=== PATIENT | male | born 1995 | race Asian ===

== ENCOUNTER 2021-03-16 21:53 | Emergency (ER) | payer OTHER ==
[~2021-03-16] VITALS: Ht 182.9 cm; Wt 68.0 kg
== END 2021-03-16 22:40 | disposition home or self-care (01) ==
LOC: ER 21:53
DX: U07.1 COVID-19 (principal)
CPT/HCPCS: 99282

== ENCOUNTER 2022-04-17 19:31 | Emergency (ER) | payer OTHER ==
[~2022-04-17] VITALS: Ht 182.9 cm; Wt 65.8 kg
[2022-04-17] MEDS ORDERED: CYCL10 PO (21:14)
== END 2022-04-17 21:31 | disposition home or self-care (01) ==
LOC: ER 19:31
DX: S29.012A Strain of muscle and tendon of back wall of thorax, initial encounter (principal); X50.0XXA Overexertion from strenuous movement or load, initial encounter
CPT/HCPCS: 99282; A9270

== ENCOUNTER → 2023-01-26 | Outpatient (CLI) | payer OTHER ==
[~2023-01-26] MED LIST: CYCL10 PO; VENL75ER PO
== END ==
LOC: LAB 11:57 → LAB SHORT 11:57
DX: J02.9 Acute pharyngitis, unspecified (principal)
CPT/HCPCS: 87081

== ENCOUNTER 2024-06-20 19:16 | Emergency (ER) | payer OTHER ==
[~2024-06-20] VITALS: Ht 182.9 cm; Wt 71.2 kg
[2024-06-20] MEDS ORDERED: Ketorolac Tromethamine 15mg Vial IV ONE (22:10)
[2024-06-20] MEDS ORDERED: NS 1,000 ML IV SCH (22:10)
[2024-06-20 22:30] LABS: BASOPHILS ABSOLUTE AUTO 0.08 K/mm3 (0.00-0.23); BASOPHILS PERCENT AUTO 1 % (0-2); EOSINOPHILS PERCENT AUTO 10 % (0-6); Hemoglobin 13.7 g/dL (13.5-17.5); IMMATURE GRAN ABSOLUTE AUTO 0.02 K/mm3 (0.00-0.10); IMMATURE GRAN PERCENT AUTO 0 % (0-1); LYMPHOCYTES PERCENT AUTO 47 % (21-46); MONOCYTES ABSOLUTE AUTO 0.58 K/mm3 (0.16-1.47); MONOCYTES PERCENT AUTO 7 % (4-13); Mean Corpuscular HGB 28.2 pg (26.0-34.0); Mean Corpuscular HGB Conc 34.3 g/dL (31.5-36.5); Mean Corpuscular Volume 82 fL (80-100); Mean Platelet Volume 9.2 fL (9.1-12.4); NEUTROPHILS PERCENT AUTO 34 % (41-73); Platelet Count 322 K/mm3 (150-400); RDW Coefficient Variation 12.6 % (11.7-14.2); RDW Standard Deviation 38.1 fL (35.1-46.3); Red Blood Cell Count 4.86 M/mm3 (4.30-5.90); White Blood Cell Count 7.88 K/mm3 (4.00-11.30)
[2024-06-20 22:55] LABS: Albumin, Blood 3.8 g/dL (3.4-5.0); Albumin/Globulin Ratio 1.2 (0.8-1.8); Bilirubin, Total 0.3 mg/dL (0.1-1.0); Bun/Creatinine Ratio 9.8 (12.0-20.0); Calcium, Blood 8.2 mg/dL (8.5-10.1); Creatinine, Blood 0.92 mg/dL (0.60-1.20); Globulin, Blood 3.1 g/dL (2.2-4.0); Potassium, Blood 3.9 mmol/L (3.5-5.5); Total Protein, Blood 6.9 g/dL (6.4-8.2)
[2024-06-20 23:00] VITALS: BP 113/85
== END 2024-06-20 23:14 | disposition home or self-care (01) ==
LOC: ER 19:16
PROVIDERS: Student in an Organized Health Care Education/Training Program
DX: M79.605 Pain in left leg (principal); K92.1 Melena; Z79.51 Long term (current) use of inhaled steroids
CPT/HCPCS: 80053; 82550; 85025; 93971; 96361; 96374; 99284-25; J1885; J7030

== ENCOUNTER 2025-01-11 19:24 | Emergency (ER) | payer OTHER ==
[~2025-01-11] VITALS: Ht 182.9 cm; Wt 70.3 kg
[2025-01-11 21:15] VITALS: BP 120/75
[2025-01-11] MEDS ORDERED: Lidocaine 4% 1 Patch TOP ONE (21:15)
[2025-01-11] MEDS ORDERED: Ketorolac Tromethamine 15mg Vial IM ONE (21:15)
[2025-01-11] MEDS ORDERED: ASPERFLEX1 EACH TOP (21:19)
[2025-01-11] MEDS ORDERED: Robaxin750 MG PO (21:19)
== END 2025-01-11 21:26 | disposition home or self-care (01) ==
LOC: ER 19:24
DX: S16.1XXA Strain of muscle, fascia and tendon at neck level, initial encounter (principal); X58.XXXA Exposure to other specified factors, initial encounter; Z79.899 Other long term (current) drug therapy
CPT/HCPCS: 93005; 93010; 96372; 99283-25; A9270; J1885

== ENCOUNTER 2025-01-12 11:45 | Emergency (ER) | payer OTHER ==
[~2025-01-12] VITALS: Ht 182.9 cm; Wt 70.3 kg
[~2025-01-12 11:45] MED LIST changes: +ASPERFLEX1 EACH TOP; +Robaxin750 MG PO
[2025-01-12 12:43] VITALS: BP 139/95
[2025-01-12 13:32] LABS: BASOPHILS ABSOLUTE AUTO 0.07 K/mm3 (0.00-0.23); BASOPHILS PERCENT AUTO 1 % (0-2); EOSINOPHILS ABSOLUTE AUTO 0.60 K/mm3 (0.00-0.68); EOSINOPHILS PERCENT AUTO 8 % (0-6); Hematocrit 44.1 % (37.0-53.0); Hemoglobin 15.0 g/dL (13.5-17.5); IMMATURE GRAN ABSOLUTE AUTO 0.03 K/mm3 (0.00-0.10); IMMATURE GRAN PERCENT AUTO 0 % (0-1); LYMPHOCYTES ABSOLUTE AUTO 2.11 K/mm3 (0.84-5.20); LYMPHOCYTES PERCENT AUTO 28 % (21-46); MONOCYTES ABSOLUTE AUTO 0.67 K/mm3 (0.16-1.47); MONOCYTES PERCENT AUTO 9 % (4-13); Mean Corpuscular HGB Conc 34.0 g/dL (31.5-36.5); Mean Corpuscular Volume 84 fL (80-100); NEUTROPHILS ABSOLUTE AUTO 3.94 K/mm3 (1.96-9.15); NEUTROPHILS PERCENT AUTO 53 % (41-73); NRBC ABSOLUTE 0.00 K/mm3 (0.00-0.02); NRBC Auto 0.0 /100 WBC (0.0-0.2); Platelet Count 326 K/mm3 (150-400); RDW Coefficient Variation 13.0 % (11.7-14.2); RDW Standard Deviation 39.7 fL (35.1-46.3)
[2025-01-12 14:02] LABS: Alanine Aminotransfer (ALT/SGP 26.0 U/L (12-78); Albumin, Blood 4.1 g/dL (3.4-5.0); Albumin/Globulin Ratio 1.1 (0.8-1.8); Anion Gap 7.0 mmol/L (3-11); Aspartate Aminotrans (AST/SGOT 25.0 U/L (12-37); Bilirubin, Total 0.6 mg/dL (0.1-1.0); Blood Urea Nitrogen 16.0 mg/dL (8-24); CO2, Blood 28.0 mmol/L (21-32); Calcium, Blood 8.8 mg/dL (8.5-10.1); Chloride, Blood 105.0 mmol/L (98-108); Creatinine, Blood 0.98 mg/dL (0.60-1.20); Globulin, Blood 3.6 g/dL (2.2-4.0); Glucose, Blood 84.0 mg/dL (70-99); Potassium, Blood 4.3 mmol/L (3.5-5.5); Sodium, Blood 136.0 mmol/L (136-145); Total Protein, Blood 7.7 g/dL (6.4-8.2)
== END 2025-01-12 14:46 | disposition home or self-care (01) ==
LOC: ER 11:45
PROVIDERS: Physician Assistant
DX: R07.89 Other chest pain (principal); Z59.89 Other problems related to housing and economic circumstances
CPT/HCPCS: 71046; 80053; 83690; 85025; 93005; 93010; 99285-25

== ENCOUNTER → 2025-02-10 | Outpatient (CLI) | payer OTHER ==
[2025-02-10 19:21] LABS: Bilirubin, Urine Neg (Neg); Color, Urine Yellow (P-Yellow); Glucose Qualitative, Urine Neg (Neg); Ketones, Urine Neg (Neg); Leukocyte Esterase, Urine Neg (Neg); Protein, Urine 1+ (Neg); Specific Gravity, Urine 1.010 (1.003-1.022); Urobilinogen, Urine NORM (Normal)
== END ==
LOC: LAB 18:30 → LAB SHORT 18:30
PROVIDERS: Nurse Practitioner Family
DX: R30.9 Painful micturition, unspecified (principal)
CPT/HCPCS: 87086

== ENCOUNTER → 2025-02-17 | Outpatient (CLI) | payer OTHER | LOC: LAB 16:21 → LAB SHORT 16:21 | DX: R30.0 Dysuria (principal) | CPT/HCPCS: 87086 ==